=== PATIENT | female | born 1960 | race Caucasian/White ===

== ENCOUNTER 2022-07-25 17:29 | Inpatient (IN) | payer MEDICAID ==
[~2022-07-25] VITALS: Ht 162.6 cm; Wt 49.9 kg
[2022-07-25] MEDS ORDERED: DEXAMETHASONE 10 MG/ML VIAL IV ONE (18:00)
[2022-07-25] MEDS ORDERED: LEVETIRACETAM 1,000 MG in SODIUM CHLORIDE 0.9% 100 ML IV SCH (18:00)
[2022-07-25] MEDS: LEVETIRACETAM 1000MG PREMIX 100 ML IV SCH (18:08)
[2022-07-25 18:40] LABS: HEMATOCRIT. 39.5 % (36.0-48.0); HEMOGLOBIN. 13.4 g/dL (12.0-16.0); MEAN CORPUSCULAR HEMOGLOBIN 30.7 pg (28.0-32.0); MEAN CORPUSCULAR VOLUME 90.4 fL (81.0-99.0); MEAN PLATELET VOLUME 7.4 fl (7.4-10.4); PLATELET 273 x1000/uL (130-400); RED BLOOD CELL COUNT 4.37 mill/uL (4.2-5.4); RED CELL DISTRIBUTION WIDTH 15.6 % (11.6-14.6)
[2022-07-25] MEDS ORDERED: SODIUM CHLORIDE 0.9% 1,000 ML IV ONE ×3 (18:45→22:15)
[2022-07-25 18:48] LABS: CHLORIDE 99 mEq/L (98-107)
[2022-07-25 18:53] LABS: ETHANOL BLOOD < 10 mg/dL; INR 1.2
[2022-07-25 18:58] LABS: CREATINE KINASE 34 IU/L (26-192)
[2022-07-25] MEDS ORDERED: VANCOMYCIN 1G PREMIX 200 ML IV SCH (19:00)
[2022-07-25] MEDS ORDERED: KCL 20MEQ/100ML PREMIX 100 ML IV ONE (19:00)
[2022-07-25] MEDS ORDERED: PIPERACILLIN/TAZOBACTAM 3.375GM/50ML PREMIX IV ONE (19:00)
[2022-07-25] MEDS ORDERED: PIPERACILLIN/TAZ 3.375G PREMIX 50 ML IV NR (19:15)
[2022-07-25 19:18] LABS: PHOSPHORUS 1.7 mg/dL (2.5-4.9)
[2022-07-25 19:55] LABS: PLATELET ESTIMATE NORMAL
[2022-07-25] MEDS ORDERED: MAGNESIUM 2 G PREMIX 50 ML IV ONE (20:15)
[2022-07-25] MEDS ORDERED: MAGNESIUM/ALUMINUM HYDROXIDE/SIMETHICONE 30ML UDC PO PRN (20:30)
[2022-07-25] MEDS ORDERED: KCL 20MEQ/100ML PREMIX 100 ML IV NR (20:30)
[2022-07-25] MEDS ORDERED: ONDANSETRON HCL 4MG/2ML INJ IV PRN (20:30)
[2022-07-25] MEDS ORDERED: DOCUSATE SODIUM 100MG CAPSULE PO PRN (20:30)
[2022-07-25] MEDS ORDERED: GUAIFENESIN 200MG/10ML SUGAR FREE UDC PO PRN (20:30)
[2022-07-25] MEDS: DEXT 5%/0.9% NACL KCL 20MEQ/L 1,000 ML IV SCH (20:30)
[2022-07-25] MEDS ORDERED: ENOXAPARIN 40MG/0.4ML SYR SUBCUT SCH (20:30)
[2022-07-25] MEDS ORDERED: PIPERACILLIN/TAZ 3.375G PREMIX 50 ML IV SCH (20:30)
[2022-07-25] MEDS ORDERED: IPRATROPIUM/ALBUTEROL 0.5-3(2.5)MG/3ML NEB NEB PRN (20:30)
[2022-07-25] MEDS ORDERED: ACETAMINOPHEN 325MG TABLET PO PRN ×2 (20:30)
[2022-07-25] MEDS ORDERED: CLONIDINE 0.1MG TABLET PO PRN (20:30)
[2022-07-25] MEDS: ENOXAPARIN 30MG/0.3ML SYR SUBCUT SCH (20:40)
[2022-07-25 21:24] LABS: T4 FREE 1.59 ng/dL (0.76-1.46)
[2022-07-25 21:39] LABS: VITAMIN B12 SERUM 1503 pg/mL (211-911)
[2022-07-25] MEDS ORDERED: POTASSIUM PHOS,M-BASIC-D-BASIC 30 MMOL in DEXT 5% WATER 500 ML IV NR (22:00)
[2022-07-25] MEDS ORDERED: NOREPINEPHRINE 8MG/250ML PMX 250 ML IV ONE (23:45)
[2022-07-26] VITALS (66 sets, daily range): BP systolic 68–148; BP diastolic 22–99
[2022-07-26] MEDS: DEXAMETHASONE 4MG/ML 1ML VIAL IV SCH ×5 (00:47→23:05)
[2022-07-26] MEDS ORDERED: POTASSIUM PHOS,M-BASIC-D-BASIC 30 MMOL in DEXT 5% WATER 500 ML IV ONE (02:00)
[2022-07-26] MEDS ORDERED: NOREPINEPHRINE 8MG/250ML PMX 250 ML IV NR (03:00)
[2022-07-26] MEDS ORDERED: VANCOMYCIN 750 MG in DEXT 5% WATER 250 ML IV SCH (03:00)
[2022-07-26] MEDS ORDERED: VANCOMYCIN 750MG PREMIX 150 ML IV SCH (03:30)
[2022-07-26] MEDS ORDERED: PIPERACILLIN/TAZOBACTAM 3.375G in DEXT 5% WATER 50ML IV SCH (06:00)
[2022-07-26] MEDS: LEVETIRACETAM 1000MG PREMIX 100 ML IV SCH (06:49)
[2022-07-26] MEDS ORDERED: LEVETIRACETAM 500MG PREMIX 100 ML IV SCH (09:00)
[2022-07-26] MEDS ORDERED: NOREPINEPHRINE 32 MG in DEXT 5% WATER 218 ML IV PRN (11:00)
[2022-07-26] MEDS: DEXT 5%/0.9% NACL KCL 20MEQ/L 1,000 ML IV SCH ×2 (12:05→17:02)
[2022-07-26 12:43] LABS: CLARITY URINE CLEAR (CLEAR); COLOR URINE YELLOW (YELLOW); KETONES URINE NEGATIVE (NEGATIVE); LEUKOCYTE ESTERASE URINE TRACE (NEGATIVE); NITRITE URINE NEGATIVE (NEGATIVE); OCCULT BLOOD URINE NEGATIVE (NEGATIVE); PH URINE 6.5 (4.5-8.0); PROTEIN URINE NEGATIVE (NEGATIVE)
[2022-07-26] MEDS: PIPERACILLIN/TAZOBACTAM 3.375G in DEXT 5% WATER 50ML IV SCH ×2 (14:27→21:34)
[2022-07-26] MEDS: VANCOMYCIN 750MG PREMIX 150 ML IV SCH (16:05)
[2022-07-26 18:09] LABS: HEMATOCRIT. 35.7 % (36.0-48.0); HEMOGLOBIN. 11.8 g/dL (12.0-16.0); MEAN CORPUSCULAR VOLUME 90.6 fL (81.0-99.0); PLATELET 254 x1000/uL (130-400); RED BLOOD CELL COUNT 3.94 mill/uL (4.2-5.4); RED CELL DISTRIBUTION WIDTH 16.3 % (11.6-14.6)
[2022-07-26 18:31] LABS: CHLORIDE 116 mEq/L (98-107)
[2022-07-26 18:38] LABS: PHOSPHORUS 1.7 mg/dL (2.5-4.9)
[2022-07-26] MEDS ORDERED: NALOXONE HCL 0.4MG/ML VIAL IV PRN (20:00)
[2022-07-26 20:20] LABS: PLATELET ESTIMATE NORMAL
[2022-07-26] MEDS: LEVETIRACETAM 500MG PREMIX 100 ML IV SCH (20:43)
[2022-07-26] MEDS: ENOXAPARIN 30MG/0.3ML SYR SUBCUT SCH (20:43)
[2022-07-26] MEDS: TRAMADOL 50MG TABLET PO PRN (20:45)
[2022-07-27] VITALS (66 sets, daily range): BP systolic 66–144; BP diastolic 19–102
[2022-07-27 03:47] LABS: HEMATOCRIT. 37.9 % (36.0-48.0); HEMOGLOBIN. 12.6 g/dL (12.0-16.0); MEAN CORPUSCULAR HEMOGLOBIN 30.3 pg (28.0-32.0); MEAN CORPUSCULAR VOLUME 91.4 fL (81.0-99.0); MEAN PLATELET VOLUME 7.8 fl (7.4-10.4); PLATELET 228 x1000/uL (130-400); RED BLOOD CELL COUNT 4.15 mill/uL (4.2-5.4); RED CELL DISTRIBUTION WIDTH 16.6 % (11.6-14.6)
[2022-07-27 03:53] LABS: *AMPHETAMINES SCREEN URINE NEGATIVE (NEGATIVE); *BARBITURATES SCREEN URINE NEGATIVE (NEGATIVE); *BENZODIAZEPINES SCREEN URINE NEGATIVE (NEGATIVE); *COCAINE SCREEN URINE NEGATIVE (NEGATIVE); CANNABINOID URINE SCREEN NEGATIVE (NEGATIVE); METHADONE URINE SCREEN NEGATIVE (NEGATIVE); OPIATES URINE SCREEN NEGATIVE (NEGATIVE); PHENCYCLIDINE URINE SCREEN NEGATIVE (NEGATIVE)
[2022-07-27 03:56] LABS: CHLORIDE 112 mEq/L (98-107)
[2022-07-27 04:05] LABS: PLATELET ESTIMATE NORMAL
[2022-07-27] MEDS: DEXAMETHASONE 4MG/ML 1ML VIAL IV SCH ×3 (05:59→17:15)
[2022-07-27] MEDS: PIPERACILLIN/TAZOBACTAM 3.375G in DEXT 5% WATER 50ML IV SCH ×3 (05:59→21:20)
[2022-07-27] MEDS: VANCOMYCIN 750MG PREMIX 150 ML IV SCH (05:59)
[2022-07-27] MEDS: TRAMADOL 50MG TABLET PO PRN (08:11)
[2022-07-27] MEDS: LEVETIRACETAM 500MG PREMIX 100 ML IV SCH ×2 (08:11→20:23)
[2022-07-27] MEDS: DEXT 5%/0.9% NACL KCL 20MEQ/L 1,000 ML IV SCH ×2 (12:44→23:00)
[2022-07-27] MEDS ORDERED: NITROGLYCERIN 0.4MG TABLET SL SL PRN (12:45)
[2022-07-27] MEDS: HYDROCODONE/ACETAMINOPHEN 5/325MG TABLET PO PRN (13:31)
[2022-07-27] MEDS ORDERED: VANCOMYCIN 750MG PREMIX 150 ML IV SCH (14:00)
[2022-07-27] MEDS ORDERED: BUTALBITAL/ACETAMINOPHEN/CAFFEINE 50/325/40MG TABLET PO PRN (14:45)
[2022-07-27] MEDS: ENOXAPARIN 30MG/0.3ML SYR SUBCUT SCH (20:23)
[2022-07-28] VITALS (21 sets, daily range): BP systolic 99–136; BP diastolic 61–87
[2022-07-28] MEDS: DEXAMETHASONE 4MG/ML 1ML VIAL IV SCH ×5 (00:25→23:53)
[2022-07-28 03:19] LABS: CHLORIDE 110 mEq/L (98-107)
[2022-07-28] MEDS: PIPERACILLIN/TAZOBACTAM 3.375G in DEXT 5% WATER 50ML IV SCH ×3 (06:47→23:53)
[2022-07-28] MEDS: DEXT 5%/0.9% NACL KCL 20MEQ/L 1,000 ML IV SCH ×2 (07:54→18:41)
[2022-07-28] MEDS: LEVETIRACETAM 500MG PREMIX 100 ML IV SCH ×2 (08:54→21:11)
[2022-07-28] MEDS: HYDROCODONE/ACETAMINOPHEN 5/325MG TABLET PO PRN ×3 (10:38→23:30)
[2022-07-28] MEDS: LORAZEPAM 2MG/ML CPJ IV PRN (21:11)
[2022-07-28] MEDS: ENOXAPARIN 30MG/0.3ML SYR SUBCUT SCH (21:23)
[2022-07-29] VITALS: BP 139/82
[2022-07-29] MEDS: DEXT 5%/0.9% NACL KCL 20MEQ/L 1,000 ML IV SCH ×2 (03:45→13:17)
[2022-07-29 04:00] VITALS: BP 154/95
[2022-07-29] MEDS: DEXAMETHASONE 4MG/ML 1ML VIAL IV SCH ×3 (05:34→18:23)
[2022-07-29] MEDS: PIPERACILLIN/TAZOBACTAM 3.375G in DEXT 5% WATER 50ML IV SCH ×3 (05:35→22:27)
[2022-07-29 08:00] VITALS: BP 133/83
[2022-07-29] MEDS: LEVETIRACETAM 500MG PREMIX 100 ML IV SCH ×2 (09:29→21:00)
[2022-07-29 12:00] VITALS: BP 144/80
[2022-07-29] MEDS: HYDROCODONE/ACETAMINOPHEN 5/325MG TABLET PO PRN ×2 (13:40→22:28)
[2022-07-29 16:00] VITALS: BP 128/93
[2022-07-29 20:00] VITALS: BP 126/82
[2022-07-29] MEDS: ENOXAPARIN 30MG/0.3ML SYR SUBCUT SCH (21:00)
[2022-07-29] MEDS: LORAZEPAM 2MG/ML CPJ IV PRN (22:28)
[2022-07-30] VITALS: BP 144/94
[2022-07-30] MEDS: DEXT 5%/0.9% NACL KCL 20MEQ/L 1,000 ML IV SCH ×2 (00:22→09:39)
[2022-07-30] MEDS: DEXAMETHASONE 4MG/ML 1ML VIAL IV SCH ×4 (00:22→17:46)
[2022-07-30 04:00] VITALS: BP 99/70
[2022-07-30] MEDS: PIPERACILLIN/TAZOBACTAM 3.375G in DEXT 5% WATER 50ML IV SCH ×3 (06:53→21:00)
[2022-07-30] MEDS: LORAZEPAM 2MG/ML CPJ IV PRN (06:53)
[2022-07-30 08:00] VITALS: BP 133/90
[2022-07-30] MEDS: LEVETIRACETAM 500MG PREMIX 100 ML IV SCH ×2 (09:40→20:59)
[2022-07-30 12:00] VITALS: BP 143/94
[2022-07-30] MEDS: HYDROCODONE/ACETAMINOPHEN 5/325MG TABLET PO PRN ×2 (14:15→21:14)
[2022-07-30 16:00] VITALS: BP 133/82
[2022-07-30 20:00] VITALS: BP 142/83
[2022-07-30] MEDS: ENOXAPARIN 30MG/0.3ML SYR SUBCUT SCH (20:59)
[2022-07-31] VITALS: BP 142/87
[2022-07-31] MEDS: DEXAMETHASONE 4MG/ML 1ML VIAL IV SCH ×2 (00:30→05:19)
[2022-07-31 04:00] VITALS: BP 123/83
[2022-07-31] MEDS: DEXT 5%/0.9% NACL KCL 20MEQ/L 1,000 ML IV SCH (05:19)
[2022-07-31 08:00] VITALS: BP 124/90
[2022-07-31] MEDS ORDERED: METR-167 MT (08:30)
[2022-07-31] MEDS ORDERED: LEVO750T68 MT (08:30)
[2022-07-31] MEDS: HYDROCODONE/ACETAMINOPHEN 5/325MG TABLET PO PRN (09:53)
[2022-07-31] MEDS: LEVETIRACETAM 500MG PREMIX 100 ML IV SCH (09:53)
[2022-07-31 12:00] VITALS: BP 120/81
== END 2022-07-31 12:35 | disposition hospice, home (50) | DRG 720 ==
LOC: ER 17:29 → EDBEDREQ 17:37 → EDBEDREQSVC 17:37 → EDBEDREQ 20:02 → EDBEDREQSVC 20:02 → EDBEDREQTM 20:02 → ENRESERV 07-26 06:49 → MICUSO 07-26 08:11 → 6EST 07-28 18:20
PROVIDERS: ADMIT Internal Medicine; ATTEND Internal Medicine
DX: A41.50 Gram-negative sepsis, unspecified (principal); R65.21 Severe sepsis with septic shock; E43 Unspecified severe protein-calorie malnutrition; G92.8 Other toxic encephalopathy; E87.20 Acidosis, unspecified; C79.31 Secondary malignant neoplasm of brain; E83.51 Hypocalcemia; Z20.822 Contact with and (suspected) exposure to COVID-19; Z66 Do not resuscitate; B96.1 Klebsiella pneumoniae [K. pneumoniae] as the cause of diseases classified elsewhere; E87.6 Hypokalemia; N39.0 Urinary tract infection, site not specified; R74.01 Elevation of levels of liver transaminase levels; Z68.1 Body mass index [BMI] 19.9 or less, adult; Z51.5 Encounter for palliative care; Z85.3 Personal history of malignant neoplasm of breast; Z86.711 Personal history of pulmonary embolism; Z86.718 Personal history of other venous thrombosis and embolism; Z92.21 Personal history of antineoplastic chemotherapy; Z92.3 Personal history of irradiation
CPT/HCPCS: 36415; 70496; 70498; 71045; 80048; 80053; 80061; 80202; 80305; 80320; 81003; 82550; 82607; 82746; 83036; 83540; 83550; 83605; 83735; 84100; 84439; 84443; 84484; 85025; 86850; 86900; 87077; 87186; 87426; 92610; 93005; 93970; 99291; C1893; J1100; J1650; J1953; J2060; J2543; J3370; J3475; J3480; J3490; J7030; J7050; J7060; G0480